=== PATIENT | female | born 1970 | race Caucasian/White ===

== ENCOUNTER 2017-04-25 05:30 | Day surgery (SDC) | payer OTHER ==
[~2017-04-25] VITALS: Ht 165.1 cm; Wt 64.4 kg
[2017-04-25] MEDS ORDERED: CEFAZOLIN SOD 1 GM/ ISO 50 ML PREMIX IV ONE (07:15)
[2017-04-25] MEDS ORDERED: LR 1,000 ML IV ONE (08:50)
[2017-04-25] MEDS ORDERED: KETOROLAC TROMETHAMINE 30 MG VIAL IM PRN (09:00)
[2017-04-25] MEDS ORDERED: NALOXONE HCL 0.4 MG/ML AMP (NARCAN) IVP PRN (09:00)
[2017-04-25] MEDS ORDERED: NALBUPHINE HCL 10 MG/ML AMP IVP PRN (09:00)
[2017-04-25] MEDS ORDERED: fentaNYL CITRATE/PF 100 MCG/2 ML AMP IVP PRN (09:00)
[2017-04-25] MEDS ORDERED: DIPHENHYDRAMINE INJ 50 MG/ML VIAL IVP PRN (09:00)
[2017-04-25] MEDS ORDERED: ONDANSETRON HCL 4 MG/2 ML VIAL IVP PRN ×3 (09:00→11:15)
[2017-04-25] MEDS ORDERED: ePHEDrine sulfate 50 MG/ML VIAL IVP PRN (09:00)
[2017-04-25] MEDS ORDERED: IBUPROFEN 800 MG TABLET PO PRN (11:15)
[2017-04-25] MEDS ORDERED: OXYCODONE/ACETAMINOPHEN 5-325 TABLET PO PRN ×2 (11:15)
[2017-04-25 12:25] VITALS: BP_SYST 103
[2017-04-25] MEDS ORDERED: ONDANSETRON HCL 4 MG/2 ML VIAL ONE (13:24)
== END 2017-04-25 16:15 | disposition home or self-care (01) ==
LOC: SMU 05:30 → SDS 05:30
PROVIDERS: ATTEND Obstetrics & Gynecology
DX: D25.1 Intramural leiomyoma of uterus (principal); F41.9 Anxiety disorder, unspecified; L50.3 Dermatographic urticaria; H69.80 Other specified disorders of Eustachian tube, unspecified ear; E78.5 Hyperlipidemia, unspecified; E55.9 Vitamin D deficiency, unspecified; Z98.890 Other specified postprocedural states; Z83.49 Family history of other endocrine, nutritional and metabolic diseases; Z82.49 Family history of ischemic heart disease and other diseases of the circulatory system
CPT/HCPCS: 36415; 58301; 58571; 86886; 86900; 86901; 88307; C1727; J0690; J2405; J7120; E0190